=== PATIENT | female | born 1950 | race Caucasian/White ===

== ENCOUNTER 2019-08-03 12:11 | Day surgery (SDC) | payer OTHER, MEDICARE ==
[~2019-08-03 12:11] MED LIST: PIPERACILLIN/TAZOBACTAM 3.375 GM VIAL IVPB ONE
[2019-08-03 12:23] VITALS: BMI 30.2
--- NOTE | 2019-08-03 12:34 | PDOC ---
History of Present Illness - General Chief Complaint: Pain Stated Complaint: PCP SENT/ ABDOMINAL PAIN Time Seen by Provider: 08/03/19 12:31 History Source: Patient Exam Limitations: No Limitations - History of Present Illness Initial Comments: 08/03/19 12:31 HPI: 69yo F presenting from [facility] urgent care with abdominal pain for 2 days. Patient complains of gradual onset 8-10/10, L and deshawn-umbilical abdominal pain worsening over the past two days, normal bowel habits, no urinary symptoms, nausea / vomiting / ?reflux / churning pain. Patient endorses anorexia over the same time with inability to tolerate even water by mouth due to nausea / immediate emesis. Experienced chills and subjective fevers yesterday, none today. Feels her abdomen is distended. Also endorsing "gas pains" and pain that radiated up midline and is relieved with belching, previous globus sensation that has resolved. No prior pains similar to this. All: NKDA Meds: ASA 81mg PMH: Vertigo, Atherosclerosis PSH: Cholecystectomy, Past History - Travel Traveled outside of the country in the last 30 days: No Close contact w/someone who was outside of country & ill: No - Past Medical History Allergies/Adverse Reactions: Allergies Allergy/AdvReac Type Severity Reaction Status Date / Time No Known Allergies Allergy Verified 08/03/19 12:21 Home Medications: Ambulatory Orders NK [No Known Home Medication] 08/03/19 COPD: No - Surgical History Cholecystectomy: Yes - Suicide/Smoking/Psychosocial Hx Smoking Status: No Smoking History: Never smoked Have you smoked in the past 12 months: No Number of Cigarettes Smoked Daily: 0 Information on smoking cessation initiated: No Hx Alcohol Use: No Drug/Substance Use Hx: No Substance Use Type: None Hx Substance Use Treatment: No Review of Systems - Review of Systems Able to Perform ROS?: Yes Is the patient limited Lao proficient: Yes Constitutional: Yes: Chills, Fever. No: Diaphoresis, Weakness, Weight Stable HEENTM: No: Recent change in vision, Nose Congestion, Throat Pain, Throat Swelling, Mouth Pain Respiratory: No: Cough, Shortness of Breath, Wheezing Cardiac (ROS): Yes: Chest Pain (pains from abdomen radiate up through her chest and feel better with a burp). No: Irregular Heart Rate, Palpitations, Syncope, Chest Tightness ABD/GI: Yes: Abdominal Distended, Nausea, Poor Appetite, Poor Fluid Intake, Vomiting (small volume, water won't stay down), Indigestion. No: Blood Streaked Bowels, Constipated, Diarrhea, Rectal Bleeding, Abdominal cramping, Tarry Stools : No: Burning, Dysuria, Frequency, Flank Pain, Hematuria Musculoskeletal: No: Back Pain, Joint Pain, Muscle Weakness, Neck Pain Integumentary: No: Bruising, Pruritus, Rash, Sweating Neurological: No: Headache, Numbness, Tingling, Weakness Psychiatric: No: Emotional Problems, Change in Appetite Endocrine: No: Excessive Sweating, Flushing, Change in Weight Hematologic/Lymphatic: No: Anemia, Blood Clots, Easy Bleeding, Easy Bruising All Other Systems: Reviewed and Negative *Physical Exam - Vital Signs Last Vital Signs Temp Pulse Resp BP Pulse Ox 99.1 F 73 16 98/55 L 100 08/03/19 12:19 08/03/19 12:19 08/03/19 12:19 08/03/19 12:19 08/03/19 12:19 - Physical Exam Comments: 08/03/19 14:44 Vitals reviewed, AFVSS Gen: WDWN, stoic, NAD during interview, appears stated age HEENT: NCAT, MMM, EOMI, trachea midline, normal morphologies CV: RRR, normal s1/s2, no murmurs appreciated Pulm: CTABL, normal WOB, no wheezes / rales / rhonchi Abd: Soft with guarding, diffusely tender to palpation, non-peritoneal, scar in epigastrium and near umbilicus c/w surgical history, no rashes or other overlying markings Ext: WWP, no clubbing / cyanosis / edema Neuro: alert and oriented, MAEE, CN grossly intact ED Treatment Course - LABORATORY CBC & Chemistry Diagram: 08/03/19 12:49 08/03/19 12:49 Medical Decision Making - Medical Decision Making 08/03/19 13:50 69yo F presenting from urgent care with abdominal pain for 2 days. Patient complains of gradual onset 8-10/10, L and deshawn-umbilical abdominal pain worsening over the past two days, normal bowel habits, no urinary symptoms, nausea / vomiting / ?reflux / churning pain. Exam concerning for diffuse abdominal pain with guarding, non-peritoneal. Concerning for r/o perforated viscous, diverticulitis, appendicitis, colitis, ruptured PUD, or some other acute intra-abdominal process. -CBC, CMP, Lipase, Lactate, CP, UA/UCx -EKG -CTAP with contrast 08/03/19 14:11 -PT with leukocytosis to 19.0 -Urine with bacteria, blood, orange color, c/f UTI -Pt given zosyn for abx coverage -1L IVF bolus 08/03/19 16:22 -CTAP with acute appendicitis, pending official read -Patient and family updated, NPO since 11/14 water this AM, last aspirin yesterday AM -Maintenance fluids started -Consult call placed to [facility] 08/03/19 16:46 -Spoke with Dr. Mcghee, admit satellite -Additional fluids ordered, NPO -Patient in gown only 08/03/19 17:14 -Spoke with Dr. Mcghee who noticed a GI ?mass on CTAP -Pt with last colonoscopy 12-13 years ago -Official CT read acute appy without perforation or abscess *DC/Admit/Observation/Transfer Diagnosis at time of Disposition: Appendicitis Qualifiers: Appendicitis type: acute appendicitis Acute appendicitis type: with generalized peritonitis Appendicitis gangrene presence: unspecified whether gangrene present Appendicitis perforation presence: unspecified whether perforation present Appendicitis abscess presence: unspecified whether abscess present Qualified Code(s): K35.20 - Acute appendicitis with generalized peritonitis, without abscess - Discharge Dispostion Condition at time of disposition: Guarded Decision to Admit order: Yes - Referrals Referrals: Nba Silverio MD [Primary Care Provider] - - Patient Instructions - Post Discharge Activity
[2019-08-03] MEDS ORDERED: morphine CARPU-JECT 2 MG/1 ML DISP.SYRIN IVPUSH ONE (13:02)
[2019-08-03 13:08] LABS: BASO % 0.3 % (0-2.0); HEMATOCRIT 38.5 % (32.4-45.2); HEMOGLOBIN 12.5 GM/dL (10.7-15.3); LYMPH % 7.6 % (8-40); MCH 25.9 pg (25.7-33.7); MCHC 32.5 g/dl (32.0-36.0); MEAN CELL VOLUME 79.5 fl (80-96); MEAN PLT VOLUME 8.3 fl (7.5-11.1); MONO % 3.3 % (3.8-10.2); NEUT % 88.8 % (42.8-82.8); PLATELET COUNT 208 K/MM3 (134-434); RBC 4.85 M/mm3 (3.60-5.2); RDW 14.3 % (11.6-15.6)
[2019-08-03 13:14] LABS: INR 1.24 (0.83-1.09); PROTHROMBIN TIME (PATIENT) 14.7 SEC (9.7-13.0)
[2019-08-03 13:16] LABS: VENOUS PC02 32.5 mmHg (38-52); VENOUS PH 7.48 (7.31-7.41); VENOUS PO2 71.8 mmHg (28-48)
[2019-08-03] MEDS ORDERED: MORPHINE SULFATE 2 MG/ML VIAL ONE (13:23)
[2019-08-03 13:33] LABS: ALBUMIN 3.6 g/dl (3.4-5.0); ALK PHOS 91 U/L (45-117); ANION GAP 9 MMOL/L (8-16); BILIRUBIN,TOTAL 1.1 mg/dL (0.2-1); BLOOD UREA NITROGEN 12.7 mg/dL (7-18); CALCIUM 8.7 mg/dL (8.5-10.1); CHLORIDE 102 mmol/L (98-107); CO2 25 mmol/L (21-32); CREATININE 0.9 mg/dL (0.55-1.3); GLUCOSE,RANDOM 126 mg/dL (74-106); POTASSIUM 3.3 mmol/L (3.5-5.1); SGOT/AST 19 U/L (15-37); SGPT/ALT 23 U/L (13-61); SODIUM 136 mmol/L (136-145); TOT PROT 6.7 g/dl (6.4-8.2)
--- NOTE | 2019-08-03 13:35 | PDOC ---
Attending Attestation - Resident Resident Name: Lamberto Nuneziel - ED Attending Attestation I have performed the following: I have examined & evaluated the patient, The case was reviewed & discussed with the resident, I agree w/resident's findings & plan, Exceptions are as noted - HPI HPI: 08/03/19 13:32 Ms. Galvez is 69 yo F who presents to the ER from Urgent care due to abdominal pain Her symptoms began 2 nights ago after eating corn She notes severe lower abdominal pain She has been unable to tolerate po since this pain began she reports that her pain is 10/10, sharp, worse with any palpation of her abdomen, or movement She had a fever yesterday No prior episodes like this No known history of Diverticulitis Prior surgical history includes - Lap hugh And "surgery to not have babies" - Physicial Exam PE: 08/03/19 13:34 GENERAL: The patient is in no acute distress. ENT: Ears normal, nares patent, oropharynx clear without exudates. Moist mucous membranes. NECK: Normal range of motion, supple, no nuchal rigidity LUNGS: Breath sounds equal, clear to auscultation bilaterally. No wheezes, and no crackles. HEART:Regular rate and rhythm, normal S1 and S2 without murmur, rub or gallop. ABDOMEN: Soft, diffuse lower abdominal tenderness, voluntary guarding, no rebound EXTREMITIES: Normal range of motion, no edema. NEUROLOGICAL: Cranial nerves II through XII grossly intact. Normal speech. No focal neurological deficits. SKIN: Warm, Dry, normal turgor, no rashes or lesions noted. - Medical Decision Making 08/03/19 13:29 EKG: NSR rate of 86 bpm, axis nml, intervals nml, t waves inverted v2-v5 08/03/19 13:37 DD: appendicitis, diverticulitis, colitis, ruptured viscous will do Labs CT IVF Morphine 08/03/19 13:48 Laboratory Tests 08/03/19 08/03/19 08/03/19 12:44 12:49 12:49 WBC 19.0 H Hgb 12.5 Hct 38.5 Plt Count 208 Neutrophils % 88.8 H D INR Sodium 136 Potassium 3.3 L Chloride 102 Carbon Dioxide 25 BUN 12.7 Creatinine 0.9 Random Glucose 126 H Urine Blood 2+ H Urine Nitrite Negative Ur Leukocyte Esterase 2+ H Urine WBC (Auto) 228 08/03/19 12:49 WBC Hgb Hct Plt Count Neutrophils % INR 1.24 H Sodium Potassium Chloride Carbon Dioxide BUN Creatinine Random Glucose Urine Blood Urine Nitrite Ur Leukocyte Esterase Urine WBC (Auto) CT pending 08/03/19 16:19 CT = Acute Appendicitis Call placed to surgery Zosn ordered
[2019-08-03 13:37] LABS: EPI CELLS 14.1 /HPF (0-5/HPF); HYALINE CASTS 28 /lpf (0-8); PH,URINE 5.5 (5.0-8.0); URINE APPEARANCE TURBID; URINE BACTERIA 661.1 /hpf (NEGATIVE); URINE BILIRUBIN 1+ (NEGATIVE); URINE COLOR ORANGE; URINE GLUCOSE (UA) NEGATIVE (NEGATIVE); URINE KETONE TRACE (NEGATIVE); URINE LEUK ESTERASE 2+ (NEGATIVE); URINE NITRITE NEGATIVE (NEGATIVE); URINE PROTEIN 1+ (NEGATIVE); URINE WBC 228 /hpf (0-5)
[2019-08-03 13:54] LABS: URINE RBC 7.3 /hpf (0-4)
[2019-08-03 14:00] LABS: LIPASE 130 U/L (73-393)
[2019-08-03] MEDS ORDERED: PIPERACILLIN/TAZOB 3.375 GM 3.375 GM in DEXTROSE 5%-WATER - 50 ML IVPB ONE (14:09)
[2019-08-03] MEDS ORDERED: PIPERACILLIN/TAZOB 3.375 GM 3.375 GM/50 ML BAG IVPB ONE (14:21)
[2019-08-03] MEDS ORDERED: SODIUM CHLORIDE 0.9% 500 ML INFUS.BAG IV ONE (16:24)
[2019-08-03] MEDS ORDERED: SODIUM CHLORIDE 1,000 ML IV SCH (16:30)
[2019-08-03] MEDS ORDERED: LACTATED RINGERS SOLUTION 1,000 ML/1,000 ML INFUS.BAG IV STA (16:36)
[2019-08-03] MEDS ORDERED: KCL 10 MEQ IVPB 10 MEQ/100 ML INFUS.BAG IVPB SCH (16:45)
[2019-08-03] MEDS ORDERED: LACTATED RINGERS SOLUTION 1,000 ML/1,000 ML INFUS.BAG IV SCH (16:45)
[2019-08-03] MEDS ORDERED: KCL 10 MEQ IVPB 10 MEQ/100 ML INFUS.BAG IVPB ONE ×2 (16:54→17:54)
[2019-08-03] MEDS: KCL 10 MEQ IVPB 10 MEQ/100 ML INFUS.BAG IVPB SCH ×2 (17:05→17:59)
--- NOTE | 2019-08-03 18:31 | HP ---
Admitting History and Physical - Primary Care Physician PCP: Nba Silverio - Admission Chief Complaint: abdominal pain, anorexia, N/V, chills History of Present Illness: 69yo [place] F with vertigo, on baby ASA daily (last taken Mon), s/p lap hugh, R breast biopsy (benign) and lap tubal ligation, presents with generalized abdominal pain beginning night, associated with anorexia. That night she had several formed BMs and could not sleep well. Monday, she also developed nausea and vomiting, even when she tried to drink water, and then had chills as well. She got very little sleep last night, and the pain continued, so she came to ER. WBC 19, K 3.3, UA shows some translocation; CT shows enlarged/inflamed appendix with no evidence of perforation or abscess. She has gotten IV fluids and Zosyn, pain medicine, and is feeling a little better. The pain comes and goes. Denies urinary symptoms; nausea is better. She reports her last colonoscopy over [address] Cabrera follows her for a finding in her left breast with q6m mammograms. She is seen and examined in ER holding, with sister, daughter and son present. History Source: Patient Limitations to Obtaining History: No Limitations - Past Medical History MERCHANDISER: Yes: Vertigo Gastrointestinal: Yes: GERD (no meds) Reproductive: Yes: Postmenopausal, Other (R breast biopsy done (benign); abnormality in left breast being followed with mammos q6 months) - Past Surgical History Past Surgical History: Yes: Breast Biopsy (right), Cholecystectomy, Tubal Ligation - Smoking History Smoking history: Never smoked Have you smoked in the past 12 months: No - Alcohol/Substance Use Hx Alcohol Use: Yes (rarely) History of Substance Use: reports: None - Social History ADL: Independent Home Medications - Allergies Allergies/Adverse Reactions: Allergies Allergy/AdvReac Type Severity Reaction Status Date / Time No Known Allergies Allergy Verified 08/03/19 12:21 - Home Medications Home Medications: Ambulatory Orders Aspirin [Aspirin EC] 81 mg PO DAILY 08/03/19 Family Medical History Family Hx Diabetes: Sister, Brother Review of Systems - Review of Systems Constitutional: reports: Chills, Loss of Appetite. denies: Fever Eyes: denies: Blurred Vision, Recent Change in Vision HENT: denies: Difficult Swallowing, Throat Pain Neck: denies: Swollen Glands, Tenderness Cardiovascular: denies: Chest Pain, Palpitations Respiratory: denies: Cough, SOB Gastrointestinal: reports: Abdominal Pain, Bloating, Indigestion, Nausea, Vomiting. denies: Constipation, Diarrhea Genitourinary: denies: Burning, Dysuria Musculoskeletal: denies: Back Pain, Joint Pain, Muscle Pain Integumentary: denies: Change in Color, Rash Neurological: reports: Other (vertigo when lying down - no sig issues for about 6mos). denies: Dizziness, Headache Physical Examination Vital Signs: Vital Signs Temperature 99.2 F 08/03/19 18:03 Pulse Rate 75 08/03/19 18:03 Respiratory Rate 16 08/03/19 18:03 Blood Pressure 110/60 08/03/19 18:03 O2 Sat by Pulse Oximetry (%) 99 08/03/19 18:03 Constitutional: Yes: Well Nourished, No Distress, Calm Eyes: Yes: Conjunctiva Clear, EOM Intact HENT: Yes: Atraumatic, Normocephalic Neck: Yes: Supple, Trachea Midline Cardiovascular: Yes: Regular Rate and Rhythm Respiratory: Yes: Regular, CTA Bilaterally Gastrointestinal: Yes: Soft, Abdomen, Obese, Hyperactive Bowel Sounds, Tenderness (diffuse but less RUQ, most in RLQ and suprapubic; no rebound), Other (well-healed supra and infraumbilical scars (laparoscopic)). No: Distention ...Rectal Exam: Yes: Deferred Renal/: No: CVA Tenderness - Left, CVA Tenderness - Right Musculoskeletal: No: Back Pain, Joint Swelling Extremities: No: Cool, Cyanosis Edema: No Peripheral Pulses WNL: Yes Integumentary: No: Jaundice, Rash Neurological: Yes: Alert, Oriented Psychiatric: Yes: Alert, Oriented Labs: CBC, BMP 08/03/19 12:49 08/03/19 12:49 CMP Sodium 136 mmol/L (136-145) 08/03/19 12:49 Potassium 3.3 mmol/L (3.5-5.1) L 08/03/19 12:49 Chloride 102 mmol/L (98-107) 08/03/19 12:49 Carbon Dioxide 25 mmol/L (21-32) 08/03/19 12:49 Anion Gap 9 MMOL/L (8-16) 08/03/19 12:49 BUN 12.7 mg/dL (7-18) 08/03/19 12:49 Creatinine 0.9 mg/dL (0.55-1.3) 08/03/19 12:49 Est GFR (CKD-EPI)AfAm 76.14 08/03/19 12:49 Est GFR (CKD-EPI)NonAf 65.70 08/03/19 12:49 Random Glucose 126 mg/dL (74-106) H 08/03/19 12:49 Lactic Acid 1.4 mmol/L (0.4-2.0) 08/03/19 17:11 Calcium 8.7 mg/dL (8.5-10.1) 08/03/19 12:49 Total Bilirubin 1.1 mg/dL (0.2-1) H 08/03/19 12:49 AST 19 U/L (15-37) 08/03/19 12:49 ALT 23 U/L (13-61) 08/03/19 12:49 Alkaline Phosphatase 91 U/L (45-117) 08/03/19 12:49 Creatine Kinase 72 U/L (26-192) 08/03/19 12:49 Troponin I < 0.02 ng/ml (0.00-0.05) 08/03/19 12:49 Total Protein 6.7 g/dl (6.4-8.2) 08/03/19 12:49 Albumin 3.6 g/dl (3.4-5.0) 08/03/19 12:49 Lipase 130 U/L (73-393) 08/03/19 12:49 INR, PTT INR 1.24 (0.83-1.09) H 08/03/19 12:49 Urine Test Results Urine Color [place] 08/03/19 12:44 Urine Appearance Turbid 08/03/19 12:44 Urine pH 5.5 (5.0-8.0) 08/03/19 12:44 Ur Specific [place] 1.022 (1.010-1.035) 08/03/19 12:44 Urine Protein 1+ (NEGATIVE) H 08/03/19 12:44 Urine Glucose (UA) Negative (NEGATIVE) 08/03/19 12:44 Urine Ketones Trace (NEGATIVE) H 08/03/19 12:44 Urine Blood 2+ (NEGATIVE) H 08/03/19 12:44 Urine Nitrite Negative (NEGATIVE) 08/03/19 12:44 Urine Bilirubin 1+ (NEGATIVE) H 08/03/19 12:44 Ur Leukocyte Esterase 2+ (NEGATIVE) H 08/03/19 12:44 K+ being repleted Imaging - Results Cat Scan: Report Reviewed, Image Reviewed (reviewed - enlarged, inflamed appendix, no apparent abscess or perforation) Problem List - Problems (1) Acute appendicitis with generalized peritonitis, without gangrene or abscess Assessment/Plan: admit to surgery 23H/satellite NPO until postop IV fluids, repleting K+ pain meds prn, nonnarcotics first line periop antibiotics, got Zosyn already GI/DVT prophylaxis hold home ASA Discussed with patient risks, benefits and alternatives of laparoscopic possible open appendectomy, including but not limited to bleeding, infection, injury to adjacent structures, intestinal leak or injury, intraabdominal abscess , incisional hernia, need for further procedures, ; alternatives include antibiotics, delayed or no surgery - risks of this include failure of nonoperative therapy, perforation, sepsis, recurrence, . Patient desires to proceed with operation - will take to OR for above. Informed consent signed for same. Pt also understands that she will need to f/u with PMD in 1-2 weeks and GI in 6- 8 weeks for colonoscopy. Code(s): K35.20 - ACUTE APPENDICITIS WITH GEN PERITONITIS, WITHOUT ABSCESS Qualifiers: Appendicitis perforation presence: unspecified whether perforation present Qualified Code(s): K35.20 - Acute appendicitis with generalized peritonitis, without abscess (2) Generalized abdominal pain Code(s): R10.84 - GENERALIZED ABDOMINAL PAIN (3) Nausea and vomiting Code(s): R11.2 - NAUSEA WITH VOMITING, UNSPECIFIED Qualifiers: Vomiting type: unspecified Vomiting Intractability: non-intractable Qualified Code(s): R11.2 - Nausea with vomiting, unspecified (4) Anorexia Code(s): R63.0 - ANOREXIA
[2019-08-03] MEDS ORDERED: ONDANSETRON 4 MG/2 ML VIAL IVPUSH PRN ×2 (19:16→23:48)
[2019-08-03] MEDS ORDERED: BUPIVACAINE HCL/PF 0.5% (5 MG/ML) 30 ML VIAL IJ ONE (21:02)
[2019-08-03] MEDS ORDERED: fentaNYL CITRATE 250 MCG/5 ML VIAL ONE (21:28)
[2019-08-03] MEDS ORDERED: SUCCINYLCHOLINE CHLORIDE 200 MG/10 ML SYRINGE ONE (21:29)
[2019-08-03] MEDS ORDERED: MIDAZOLAM HCL 2 MG/2 ML SINGLE DOSE VIAL ONE (21:29)
[2019-08-03] MEDS ORDERED: PROPOFOL 20 ML ONE ×2 (21:29)
[2019-08-03] MEDS ORDERED: EPHEDRINE SULFATE/0.9% NACL/PF 50 MG/10 ML SYRINGE NR ONE (21:41)
[2019-08-03] MEDS ORDERED: PIPERACILLIN/TAZOBACTAM 3.375 GM VIAL IVPB ONE (22:03)
[2019-08-03] MEDS ORDERED: NEOSTIGMINE METHYLSULFATE 0.5 MG/ML - 10 ML MDV ONE (22:12)
[2019-08-03] MEDS ORDERED: ACETAMINOPHEN INJECTION 100 ML IVPB ONE (22:24)
[2019-08-03] MEDS ORDERED: BENZOIN TINCTURE SWABSTICK TP ONE (23:16)
[2019-08-03] MEDS ORDERED: LACTATED RINGERS SOLUTION 1,000 ML IV SCH (23:45)
--- NOTE | 2019-08-03 23:55 | OP ---
Operative Note - Note: Operative Date: 08/03/19 Pre-Operative Diagnosis: acute appendicitis Operation: laparoscopic appendectomy Findings: enlarged, inflamed appendix with necrotic spot near base and some peel adjacent , no abscess/esther pus; yellow cloudy fluid in pelvis, suctioned Post-Operative Diagnosis: Same as Pre-op Surgeon: Denis Mcghee Anesthesiologist/RELAY ADJUSTER: Jeanette Brannon Anesthesia: General, Local (10ml 0.5% marcaine) Specimens Removed: appendix to pathology Estimated Blood Loss (mls): 10 Drains & Tubes with Location: Barry out at end Drains, Volume Out (mls): 250 (UOP) Fluid Volume Replaced (mls): 1,500 (crystalloid) Operative Report Dictated: Yes
[2019-08-04] MEDS ORDERED: ONDANSETRON 4 MG/2 ML VIAL IVPUSH PRN (00:07)
[2019-08-04] MEDS: LACTATED RINGERS SOLUTION 1,000 ML/1,000 ML INFUS.BAG IV SCH ×2 (00:35→03:28)
[2019-08-04] MEDS ORDERED: ACETAMINOPHEN 325 MG TABLET (FP) PO SCH ×2 (06:00)
--- NOTE | 2019-08-04 08:50 | PN ---
Progress Note (short form) - Note Progress Note: Anesthesia/Pain Pt seen and examined S:Alert and awake comfortable O: Vital Signs Temperature 97.8 F 08/04/19 06:31 Pulse Rate 71 08/04/19 06:31 Respiratory Rate 18 08/04/19 06:31 Blood Pressure 106/61 08/04/19 06:31 O2 Sat by Pulse Oximetry (%) 96 08/04/19 06:31 CBC, BMP 08/03/19 12:49 08/03/19 12:49 A/P: Current Active Problems Acute appendicitis with generalized peritonitis, without gangrene or abscess ( Acute) Anorexia (Acute) Appendicitis (Acute) Generalized abdominal pain (Acute) Nausea and vomiting (Acute) s/p Appedectomy Doing well post op Continue current care Marvin Baez MD
[2019-08-04] MEDS ORDERED: IBUPROFEN 600 MG TABLET (FP) PO SCH ×2 (09:00)
[2019-08-04 14:17] VITALS: BP 109/55; PULSE 68; TEMP 98.3
--- NOTE | 2019-08-04 15:01 | DS ---
Physical Examination Vital Signs: Vital Signs Temperature 98.3 F 08/04/19 14:15 Pulse Rate 68 08/04/19 14:15 Respiratory Rate 20 08/04/19 14:15 Blood Pressure 109/55 L 08/04/19 14:15 O2 Sat by Pulse Oximetry (%) 98 08/04/19 09:00 Findings/Remarks: Pt seen up in chair eating lunch, examined after in bed. Feeling much better, c/ o pain at umbilicus, managed well with tylenol/ibuprofen, and gassiness/ bloating. Passed gas, no BM yet. No n/v, tolerating diet, eating lightly. Ambulated, voided. Family present. Constitutional: Yes: Well Nourished, No Distress, Calm Eyes: Yes: Conjunctiva Clear, EOM Intact HENT: Yes: Atraumatic, Normocephalic Cardiovascular: Yes: Regular Rate and Rhythm Respiratory: Yes: Regular, CTA Bilaterally Gastrointestinal: Yes: Normal Bowel Sounds, Soft, Distention, Tenderness (less RLQ, minimal RUQ, + incisional, more umbilical than other 2 sites) Musculoskeletal: No: Joint Stiffness, Joint Swelling Extremities: No: Cool, Cyanosis Integumentary: Yes: Incision (x3 dressed). No: Jaundice, Rash Wound/Incision: Yes: Steri Strips (under dressings), Dressing Dry and Intact (x3 ). No: Dressing Removed Neurological: Yes: Alert, Oriented Labs: no new labs Discharge Summary Reason For Visit: APPENDICITIS Current Active Problems Acute appendicitis with generalized peritonitis, without gangrene or abscess ( Acute) Anorexia (Acute) Generalized abdominal pain (Acute) Nausea and vomiting (Acute) Vertigo Procedures: Principal: laparoscopic appendectomy Hospital Course: 69[facility] [place] [facility] with vertigo and occasional heartburn presented with 2 days of central/generalized abdominal pain, associated with anorexia, nausea and vomiting and chills. She was noted to have wbc 19 in ER, mild hypokalemia 3.3 repleted with 20mEq KCL prior to OR, and CT showed acute appendicitis with enlarged, inflamed appendix without abscess or perforation. She was taken for laparoscopic appendectomy with findings of very inflamed, enlarged appendix with possible necrotic spot near base, adjacent inflammatory peel but no pus or abscess; some cloudy yellow fluid was suctioned from the pelvis. She had Zosyn x 2 doses preop. Postoperatively, pain is controlled with alternating nonnarcotics po, she has ambulated and voided, and is tolerating regular diet. Incisional dressings are c/d/i, and tenderness is appropriate and much less. She is discharged home with lifting restrictions to f/u in 2 weeks with surgery , as well as with her PMD. She may resume her usual baby aspirin in 2 days ( Monday) at home. In 6-8 weeks after recovery, she will also need to see GI for screening colonoscopy, as her last was over 10 years ago. Time spent on discharge: 35 minutes Condition: Good - Instructions Diet, Activity, Other Instructions: Postoperative instructions: You had a laparoscopic appendectomy on 08/03/[address] Denis Mcghee of [facility]. Activity: Resume your usual activities gradually, but no heavy exertion or lifting more than 10-15 pounds for 1 month. Remove dressings 48 hours after surgery (sticky tapes underneath will fall off by themselves). You may shower daily starting then, just pat the incision areas dry. No bath or swimming until skin incisions have healed. Eat lightly at first, but advance to your usual diet as tolerated. Pain: For pain, you may use and alternate Tylenol (acetaminophen) 1-2 pills and/ or ibuprofen 200 mg (1-3 pills) every 6 hours each as needed; this means that you can take one OR the other at 3-hour intervals. Do not take more than 4000mg of acetaminophen in a day. Take medications as prescribed or indicated on the labeling. You may resume taking your BABY ASPIRIN DAILY on Monday08/06/19. Follow-up: Call Dr. Mcghee's office at [phone] to make your postop appointment (Monday in approximately 2 weeks after surgery). Clinic is held in the [facility] on the first floor of [facility]. Call the office if you have: * increasing pain not responsive to pain medication * fever of 101F or higher * vomiting * unusual or increasing bleeding or drainage from wounds * increasing redness or swelling at wound sites Also, see your primary medical doctor within 1-2 weeks. You will need to follow up with GI (Gastroenterology/Dr. Esteban) as well, in about 6-8 weeks after you are recovered from surgery, to schedule a screening colonoscopy. Referrals: Nba Silverio MD [Primary Care Provider] - eDnis Mcghee MD [Staff Physician] - Disposition: HOME - Home Medications Comprehensive Discharge Medication List: Ambulatory Orders Aspirin [Aspirin EC] 81 mg PO DAILY 08/03/19 Acetaminophen [Tylenol .Regular Strength -] 650 mg PO Q6H tablet 08/04/19 Ibuprofen [Motrin -] 600 mg PO Q6H tablet 08/04/19
--- NOTE | 2019-08-05 07:14 | EKG ---
Test Reason : Blood Pressure : / mmHG Vent. Rate : 086 BPM Atrial Rate : 086 BPM P-R Int : 148 ms QRS Dur : 088 ms QT Int : 370 ms P-R-T Axes : 022 090 023 degrees QTc Int : 442 ms NORMAL SINUS RHYTHM RIGHTWARD AXIS T WAVE ABNORMALITY, CONSIDER ANTERIOR ISCHEMIA ABNORMAL ECG WHEN COMPARED WITH ECG OF 21-AUG-2012 16:33, NONSPECIFIC T WAVE ABNORMALITY, WORSE IN INFERIOR LEADS INVERTED T WAVES HAVE REPLACED NONSPECIFIC T WAVE ABNORMALITY IN ANTERIOR LEADS Confirmed by ANGELA BAL MD ([id number]) on 08/05/2019 7:14:25 AM Referred By: Confirmed By:ANGELA BAL MD
--- NOTE | 2019-08-06 17:02 | PATH ---
Surgical Pathology Report Patient Name: LUCY KO [facility]. Rec. #: [id number] /Age/Gender: 1950 (Age: 69) / F Account: [id number] Location: AMBULATORY SURG Taken: 08/03/2019 Received: 08/05/2019 Reported: 08/06/2019 Physicians: Denis Mcghee M.D. Specimen(s) Received APPENDIX Clinical History Acute appendicitis Final Diagnosis APPENDIX, LAPAROSCOPIC APPENDECTOMY: ACUTE APPENDICITIS AND PERIAPPENDICITIS. ACUTE SEROSITIS. Electronically Signed Zelda Barlow M.D. Gross Description Received in formalin, labeled "appendix," is a 5.5 x 2.5 x 2 cm. in length, partially disrupted appendix with a stapled margin of resection and moderate attached fat. The serosa shows yellow exudate. Sectioning reveals partially hemorrhagic lumen. The wall of the appendix averages 0.2 cm. in thickness. Signal Operator sections are submitted in one cassette. FATOUMATA/08/05/2019 sonja/08/05/2019
--- NOTE | 2019-08-12 20:41 | OP ---
DATE OF OPERATION: 08/03/2019 PREOPERATIVE DIAGNOSIS: Acute appendicitis. POSTOPERATIVE DIAGNOSIS: Acute appendicitis. PROCEDURE: Laparoscopic appendectomy. SURGEON: Denis Mcghee MD ANESTHESIA: General endotracheal and local, 10 mL of 0.5% Marcaine. ESTIMATED BLOOD LOSS: 10 mL. FLUIDS: Crystalloid 1500 mL. URINE OUTPUT: 250 mL (Barry out at end of case). SPECIMEN: Appendix to pathology. FINDINGS: Enlarged, inflamed appendix with necrotic spot near base and some adjacent peel. No esther abscess or pus. Small amount of yellow cloudy fluid in pelvis, suctioned. DISPOSITION: Stable and extubated to PACU. INDICATIONS FOR PROCEDURE: Patient is a 69-year-old [place] with a history of vertigo and reflux, whose only medication at home is a baby aspirin daily which was last taken 3 days prior, who presented with generalized abdominal pain associated with anorexia for 2 days. The first night, she had several formed bowel movements, but could not sleep well. The second day, she had nausea and vomiting, including vomiting of water when she tried to drink, as well as chills. So then, she came to the emergency room after getting very little sleep. White count in the ER was 19. CT showed an enlarged, inflamed appendix with no evidence of abscess. Exam was consistent with right lower quadrant tenderness and acute appendicitis. She was given IV fluids, started on Zosyn and some pain medication. Risks, benefits, and alternatives of laparoscopic, possible open appendectomy were discussed with the patient. These included, but were not limited to, bleeding, infection, injury to adjacent structures, intestinal leak or injury, intraabdominal abscess, incisional hernia, need for further procedures, and . Alternatives included antibiotics with delayed or no surgery. The risks of that included failure of nonoperative therapy, perforation, sepsis, recurrence, and . The patient was agreeable to proceed with an operation, signed informed consent for the same, and is now brought to the OR for this procedure. OPERATIVE TECHNIQUE: The patient was brought to the operating room and laid supine on the operating table. Sequential compression devices were applied to bilateral lower extremities, and appropriate antibiotics continued in the perioperative period. After induction and intubation by Anesthesia, a Barry catheter was placed into the patient's bladder, which was removed at the end of the case. Her abdomen was then prepped and draped in sterile fashion. A small infraumbilical midline incision was made with a scalpel and carried into subcutaneous tissues with electrocautery, until the abdominal wall fascia was identified, scored, and elevated with Toni clamps. The peritoneum was entered bluntly with the tip of the clamp, and a fingertip inserted to ensure entry into the abdominal cavity and the absence of any underlying adhesions. A stay suture of 0 Vicryl was placed in [id number] fashion in the fascia for later closure, and a Indu trocar introduced directly into the abdominal cavity, which was secured in place with the balloon. The abdomen was insufflated with carbon dioxide, and the patient was placed in Trendelenburg position. The laparoscope was inserted to inspect the abdominal cavity. There was some yellow cloudy fluid noted in the pelvis, which was later suctioned. Two additional 5-mm ports were placed under direct vision in the left lower quadrant and suprapubic areas. The camera was moved to the left lower quadrant port and the suction special inspector used to clear the pelvis of the cloudy fluid. Graspers were then introduced through the ports. The small bowel was gently manipulated medially away from the right lower quadrant. The patient was tipped with the right side planed slightly upward. An enlarged, inflamed appendix was then identified and followed back to the base near the cecum, where there was noted to be a small, possibly necrotic spot near to the base, with some adjacent yellow peel on the adjacent tissues. There was no esther pus. There was no abscess identified. The [place] dissector was then used to create a window at the base of the appendix where it joined the cecum through the mesoappendix. Because of the small spot that appeared necrotic, when the 45 purple load of the Endo ROHIT stapler was introduced, it was used to take not just the base of the appendix, but a very small sliver or cuff of cecum along with the specimen. This actually required 2 firings of a 45 purple load of the Endo ROHIT stapler. Once the base of the appendix with the sliver of cecum was free, some of the fatty adhesions of the mesoappendix to the terminal ileum and veil of Treves were bluntly , such that the inflamed appendix could be held up and the mesoappendix transected with 2 additional 45 white loads of the Endo ROHIT stapler. Once the appendix was completely freed, the operative site was also suctioned clear of fluid and blood, and the appendix was placed in an Endo Catch bag and drawn up into the Indu port. The field was re-inspected for hemostasis. The staple lines were noted to be not bleeding, and the suprapubic port was removed under direct vision. Then, the Indu port and the specimen in the bag were removed en bloc, and the appendix passed off for pathology. The camera and left lower quadrant port were also withdrawn, and the abdomen exsufflated of carbon dioxide. The patient was returned to neutral position, the stay suture at the umbilicus tied to close the fascia there, and the port sites infiltrated with local anesthetic. Hemostasis was also achieved in the port sites where needed with electrocautery. Skin was then closed with 4-0 Vicryl subcuticular sutures, including a running at the umbilicus. Benzoin and Steri-Strips were placed over each incision, and dressings of gauze and Tegaderm placed over these. Counts were correct at the end of the procedure. The Barry catheter was then removed from the patient's bladder. She was then awakened and extubated by Anesthesia, moved back to a stretcher, and taken to the recovery room in stable condition, having tolerated the procedure well. Naren [id number] MTDD
== END 2019-08-04 16:00 | disposition home or self-care (01) ==
LOC: JER 12:11 → JASUSAT 16:49 → J7W 08-04 00:57 → JASUSAT 08-04 16:00
PROVIDERS: ATTEND Surgery
PROC: 0DTJ4ZZ Resection of Appendix, Percutaneous Endoscopic Approach (ICD-10-PCS; principal; 2019-08-03 21:30)
DX: K35.80 Unspecified acute appendicitis (principal)
CPT/HCPCS: 36415; 74177-TC; 80053; 81003; 82550; 82803; 83605; 83690; 84484; 85025; 85610; 85730; 86850; 86900; 86901; 87040; 87086; 87186; 88304-TC; 93005; 93010; 94760; 99285-25; J0131

== ENCOUNTER → 2021-04-07 | Day surgery (SDC) | payer OTHER, MEDICARE | END | disposition home or self-care (01) | LOC: JRADUS-SUR 09:03 | PROVIDERS: ATTEND Surgery | PROC: 07B63ZX Excision of Left Axillary Lymphatic, Percutaneous Approach, Diagnostic (ICD-10-PCS; principal; 2021-04-07) | PROC: BH41ZZZ Ultrasonography of Left Breast (ICD-10-PCS; 2021-04-07) | DX: R59.0 Localized enlarged lymph nodes (principal) | CPT/HCPCS: 19083; 38505; 76942; 87899; 88305-TC; A4648 ==

== ENCOUNTER 2021-05-26 04:43 | Day surgery (SDC) | payer OTHER, MEDICARE ==
[2021-05-25 10:43] VITALS: BMI 27.6
[2021-05-26 10:44] VITALS: TEMP 97.8
[2021-05-26 11:05] VITALS: PULSE 65
[2021-05-26 15:16] VITALS: BP 126/67
== END 2021-05-26 12:05 | disposition home or self-care (01) ==
LOC: JASU-ENDO 04:43
PROVIDERS: ATTEND Internal Medicine Gastroenterology
PROC: 0DBH8ZX Excision of Cecum, Via Natural or Artificial Opening Endoscopic, Diagnostic (ICD-10-PCS; 2021-05-26)
PROC: 0DBM8ZX Excision of Descending Colon, Via Natural or Artificial Opening Endoscopic, Diagnostic (ICD-10-PCS; 2021-05-26)
PROC: 3E0H8GC Introduction of Other Therapeutic Substance into Lower GI, Via Natural or Artificial Opening Endoscopic (ICD-10-PCS; principal; 2021-05-26 10:00)
DX: Z12.11 Encounter for screening for malignant neoplasm of colon (principal); D12.4 Benign neoplasm of descending colon; D12.0 Benign neoplasm of cecum; K92.1 Melena

== ENCOUNTER 2021-08-04 09:00 | Inpatient (IN) | payer OTHER, MEDICARE ==
[2021-08-17 12:49] VITALS: BMI 27.4
[2021-08-18] MEDS ORDERED: ALVIMOPAN 12 MG CAP PO ONE (06:30)
[2021-08-18] MEDS ORDERED: ERTAPENEM SODIUM 1 GM VIAL ONE (06:41)
[2021-08-18] MEDS ORDERED: ERTAPENEM SODIUM 1 GM in SODIUM CHLORIDE 50 ML IVPB ONE (07:00)
[2021-08-18] MEDS ORDERED: BUPIVACAINE HCL/PF 0.5% (5MG/ML) 10 ML VIAL ONE (07:38)
[2021-08-18] MEDS ORDERED: BUPIVACAINE LIPOSOME/PF (EXPAREL) 266 MG/20 ML VIAL ONE (07:38)
[2021-08-18] MEDS ORDERED: MIDAZOLAM HCL 2 MG/2 ML SINGLE DOSE VIAL ONE ×3 (07:40→08:03)
[2021-08-18] MEDS ORDERED: PROPOFOL 20 ML ONE ×6 (07:42)
[2021-08-18] MEDS ORDERED: LIDOCAINE HCL 2% 100 MG/5 ML DISP.SYRIN ONE (07:43)
[2021-08-18] MEDS ORDERED: KETAMINE HCL 200 MG/20 ML VIAL ONE (07:43)
[2021-08-18] MEDS ORDERED: LIDOCAINE HCL/PF 2% SDV 5ML VIAL ONE (07:45)
[2021-08-18] MEDS ORDERED: MAGNESIUM SULF 50% (8.12 MEQ/2 ML-1 GM VIAL) ONE (07:45)
[2021-08-18] MEDS ORDERED: ROCURONIUM BROMIDE 50 MG/5 ML SYRINGE ONE (07:52)
[2021-08-18] MEDS ORDERED: ePHEDrine SULFATE 50 MG/1 ML AMPULE ONE (07:57)
[2021-08-18] MEDS ORDERED: DEXAMETHASONE SOD PHOSPHATE 4 MG/1 ML VIAL ONE ×2 (08:04)
[2021-08-18] MEDS ORDERED: GLYCOPYRROLATE 0.2 MG/1 ML VIAL ONE ×2 (08:05→08:06)
[2021-08-18] MEDS ORDERED: NEOSTIGMINE METHYLSULFATE 0.5 MG/ML - 10 ML MDV ONE (08:05)
[2021-08-18] MEDS ORDERED: SUCCINYLCHOLINE CHLORIDE 200 MG/10 ML SYRINGE ONE (08:08)
[2021-08-18] MEDS ORDERED: ERTAPENEM SODIUM 1 GM VIAL IVPB ONE (08:58)
[2021-08-18] MEDS ORDERED: DESFLURANE GAS 240 ML BOTTLE IH ONE (09:47)
[2021-08-18] MEDS ORDERED: INDOCYANINE GREEN 25 MG/10 ML VIAL IVPUSH ONE (09:50)
[2021-08-18] MEDS ORDERED: ONDANSETRON 4 MG/2 ML VIAL IVPUSH PRN (12:19)
[2021-08-18] MEDS ORDERED: HYDROmorphone *PCA* 10MG/50ML DISP.SYRIN PCA SCH (12:30)
[2021-08-18] MEDS ORDERED: HYDROmorphone *PCA* 10MG/50ML DISP.SYRIN ONE (12:54)
[2021-08-18] MEDS ORDERED: ACETAMINOPHEN INJECTION 100 ML IVPB ONE (12:54)
[2021-08-18] MEDS: ACETAMINOPHEN 1000 MG/100 ML VIAL (NON FORMULARY) IVPB SCH ×2 (13:00→18:20)
[2021-08-18] MEDS: LACTATED RINGERS SOLUTION 1,000 ML/1,000 ML INFUS.BAG IV SCH (15:21)
[2021-08-18] MEDS: CEFAZOLIN 2 GM in DEXTROSE 5%-WATER - 100 ML IVPB SCH (18:55)
[2021-08-18] MEDS ORDERED: PT OWN MED DRAWER 7, Y5N ONE (23:49)
[2021-08-19] MEDS: ACETAMINOPHEN 1000 MG/100 ML VIAL (NON FORMULARY) IVPB SCH ×3 (00:33→13:10)
[2021-08-19] MEDS: CEFAZOLIN 2 GM in DEXTROSE 5%-WATER - 100 ML IVPB SCH (03:10)
[2021-08-19 08:01] LABS: BASO % 0.1 % (0-2.0); HEMATOCRIT 35.4 % (32.4-45.2); HEMOGLOBIN 11.6 GM/dL (10.7-15.3); LYMPH % 12.6 % (8-40); MCH 26.2 pg (25.7-33.7); MCHC 32.7 g/dl (32.0-36.0); MEAN CELL VOLUME 80.1 fl (80-96); MEAN PLT VOLUME 8.5 fl (7.5-11.1); NEUT % 82.3 % (42.8-82.8); PLATELET COUNT 189 10^3/uL (134-434); RBC 4.42 M/mm3 (3.60-5.2); RDW 14.1 % (11.6-15.6); WHITE BLOOD COUNT 12.6 K/mm3 (4.0-10.0)
[2021-08-19 08:11] LABS: ALBUMIN 3.2 g/dl (3.4-5.0)
[2021-08-19 08:12] LABS: BLOOD UREA NITROGEN 8.9 mg/dL (7-18); MAGNESIUM 2.3 mg/dL (1.8-2.4)
[2021-08-19 08:14] LABS: CALCIUM 8.3 mg/dL (8.5-10.1)
[2021-08-19 08:15] LABS: CREATININE 0.6 mg/dL (0.55-1.3); PHOSPHOROUS 3.5 mg/dL (2.5-4.9)
[2021-08-19 08:16] LABS: BILIRUBIN,TOTAL 0.6 mg/dL (0.2-1); TOT PROT 6.3 g/dl (6.4-8.2)
[2021-08-19] MEDS ORDERED: morphine SULFATE 4 MG/ML VIAL IVPUSH PRN (08:52)
[2021-08-19] MEDS ORDERED: ACETAMINOPHEN 1000 MG/100 ML VIAL (NON FORMULARY) IVPB SCH (09:00)
[2021-08-19] MEDS: ENOXAPARIN NA (PORCINE) 40 MG/0.4 ML DISP.SYRIN SQ SCH (09:17)
[2021-08-19] MEDS ORDERED: KETOROLAC TROMETHAMINE 15 MG/ML VIAL IVPUSH PRN (21:26)
[2021-08-20] MEDS: LACTATED RINGERS SOLUTION 1,000 ML/1,000 ML INFUS.BAG IV SCH (06:11)
[2021-08-20 07:03] LABS: BASO % 0.4 % (0-2.0); HEMATOCRIT 35.1 % (32.4-45.2); HEMOGLOBIN 11.6 GM/dL (10.7-15.3); LYMPH % 23.5 % (8-40); MCH 26.2 pg (25.7-33.7); MCHC 32.9 g/dl (32.0-36.0); MEAN CELL VOLUME 79.6 fl (80-96); MEAN PLT VOLUME 8.3 fl (7.5-11.1); MONO % 5.3 % (3.8-10.2); NEUT % 70.8 % (42.8-82.8); PLATELET COUNT 191 10^3/uL (134-434); RBC 4.41 M/mm3 (3.60-5.2); RDW 14.1 % (11.6-15.6); WHITE BLOOD COUNT 11.3 K/mm3 (4.0-10.0)
[2021-08-20 07:35] LABS: ALBUMIN 3.2 g/dl (3.4-5.0)
[2021-08-20 07:36] LABS: BLOOD UREA NITROGEN 8.8 mg/dL (7-18); CALCIUM 8.3 mg/dL (8.5-10.1); MAGNESIUM 2.3 mg/dL (1.8-2.4)
[2021-08-20 07:39] LABS: CREATININE 0.6 mg/dL (0.55-1.3); PHOSPHOROUS 1.6 mg/dL (2.5-4.9)
[2021-08-20 07:40] LABS: TOT PROT 6.4 g/dl (6.4-8.2)
[2021-08-20] MEDS ORDERED: POTASSIUM PHOSPHATE 30 MM in SODIUM CHLORIDE 500 ML IVPB ONE (09:00)
[2021-08-20] MEDS: ENOXAPARIN NA (PORCINE) 40 MG/0.4 ML DISP.SYRIN SQ SCH (09:14)
[2021-08-20 17:46] LABS: HEMATOCRIT 33.7 % (32.4-45.2); HEMOGLOBIN 11.1 GM/dL (10.7-15.3); MCHC 32.8 g/dl (32.0-36.0); MEAN CELL VOLUME 79.3 fl (80-96); MEAN PLT VOLUME 8.3 fl (7.5-11.1); PLATELET COUNT 179 10^3/uL (134-434); RBC 4.25 M/mm3 (3.60-5.2); RDW 14.2 % (11.6-15.6); WHITE BLOOD COUNT 9.9 K/mm3 (4.0-10.0)
[2021-08-21] MEDS: ACETAMINOPHEN WITH CODEINE 300MG/30MG TABLET PO PRN ×2 (05:36→17:13)
[2021-08-21] MEDS: ENOXAPARIN NA (PORCINE) 40 MG/0.4 ML DISP.SYRIN SQ SCH (09:02)
[2021-08-21 10:38] LABS: HEMATOCRIT 34.7 % (32.4-45.2); HEMOGLOBIN 11.3 GM/dL (10.7-15.3); MCH 25.9 pg (25.7-33.7); MCHC 32.6 g/dl (32.0-36.0); MEAN CELL VOLUME 79.6 fl (80-96); MEAN PLT VOLUME 8.7 fl (7.5-11.1); PLATELET COUNT 208 10^3/uL (134-434); RBC 4.36 M/mm3 (3.60-5.2); RDW 14.3 % (11.6-15.6); WHITE BLOOD COUNT 11.2 K/mm3 (4.0-10.0)
[2021-08-21 10:57] LABS: CALCIUM 8.2 mg/dL (8.5-10.1)
[2021-08-21 10:58] LABS: ALBUMIN 3.2 g/dl (3.4-5.0); BLOOD UREA NITROGEN 15.6 mg/dL (7-18)
[2021-08-21 10:59] LABS: BILIRUBIN,TOTAL 0.7 mg/dL (0.2-1)
[2021-08-21 11:00] LABS: TOT PROT 6.5 g/dl (6.4-8.2)
[2021-08-21 11:01] LABS: CREATININE 0.6 mg/dL (0.55-1.3); PHOSPHOROUS 3.2 mg/dL (2.5-4.9)
[2021-08-21 14:26] VITALS: BP 124/64; PULSE 71; TEMP 98.6
== END 2021-08-21 18:12 | disposition home or self-care (01) | DRG 331 ==
LOC: J2C 08-18 04:30 → J8W 08-18 14:54
PROVIDERS: ADMIT Surgery; ATTEND Surgery
PROC: 8E0W4CZ Robotic Assisted Procedure of Trunk Region, Percutaneous Endoscopic Approach (ICD-10-PCS; 2021-08-18)
PROC: 0DTF4ZZ Resection of Right Large Intestine, Percutaneous Endoscopic Approach (ICD-10-PCS; principal; 2021-08-18 08:00)
DX: C18.0 Malignant neoplasm of cecum (principal)
CPT/HCPCS: 36415; 80053; 83735; 84100; 85025; 85027; 88307-TC; 93971-TC; 94760; C9803; J0131; U0003; U0005

== ENCOUNTER 2021-12-20 11:03 | Emergency (ER) | payer OTHER, MEDICARE ==
[2021-12-20 11:17] VITALS: BMI 26.2
[2021-12-20] MEDS ORDERED: SODIUM CHLORIDE 500 ML IV STA (12:00)
[2021-12-20] MEDS ORDERED: morphine CARPU-JECT 4 MG/1 ML DISP.SYRIN IVPUSH ONE (12:00)
[2021-12-20] MEDS ORDERED: ONDANSETRON 4 MG/2 ML VIAL IVPUSH ONE (12:00)
[2021-12-20] MEDS ORDERED: morphine SULFATE 4 MG/ML VIAL ONE (12:09)
[2021-12-20] MEDS ORDERED: ONDANSETRON 4 MG/2 ML VIAL ONE (12:09)
[2021-12-20 13:25] LABS: CALCIUM 8.8 mg/dL (8.5-10.1)
[2021-12-20 13:26] LABS: ALBUMIN 3.8 g/dl (3.4-5.0); BLOOD UREA NITROGEN 12.2 mg/dL (7-18)
[2021-12-20 13:29] LABS: CREATININE 0.7 mg/dL (0.55-1.3)
[2021-12-20 13:31] LABS: BILIRUBIN,TOTAL 0.7 mg/dL (0.2-1)
[2021-12-20 13:51] LABS: EPI CELLS 21 /uL (0-25.1); HYALINE CASTS 1 /uL (0-3.1); URINE APPEARANCE CLEAR; URINE BACTERIA 41 /uL (0-1359); URINE BILIRUBIN NEGATIVE (NEGATIVE); URINE COLOR YELLOW; URINE GLUCOSE (UA) NEGATIVE (NEGATIVE); URINE KETONE NEGATIVE (NEGATIVE); URINE LEUK ESTERASE 2+ (NEGATIVE); URINE NITRITE NEGATIVE (NEGATIVE); URINE PROTEIN NEGATIVE (NEGATIVE); URINE RBC 5 /uL (0-23.9); URINE UROBILINOGEN 0.2 mg/dL (0.2-1.0); URINE WBC 108 /uL (0-25.8)
[2021-12-20 16:15] LABS: BASO % 0.4 % (0-2.0); EOS % 0.3 % (0-4.5); HEMATOCRIT 33.1 % (32.4-45.2); HEMOGLOBIN 10.8 GM/dL (10.7-15.3); LYMPH % 16.8 % (8-40); MCHC 32.5 g/dl (32.0-36.0); MEAN PLT VOLUME 8.3 fl (7.5-11.1); MONO % 5.8 % (3.8-10.2); NEUT % 76.7 % (42.8-82.8); PLATELET COUNT 193 10^3/uL (134-434); RDW 15.3 % (11.6-15.6); WHITE BLOOD COUNT 10.5 K/mm3 (4.0-10.0)
[2021-12-20] MEDS ORDERED: KETOROLAC TROMETHAMINE 15 MG/ML VIAL IVPUSH ONE (16:57)
[2021-12-20] MEDS ORDERED: KETOROLAC TROMETHAMINE 15 MG/ML VIAL ONE (17:01)
[2021-12-20 17:10] VITALS: BP 132/62; PULSE 74; TEMP 97.6
== END 2021-12-20 17:11 | disposition home or self-care (01) ==
LOC: JER 11:03
PROC: 3E0333Z Introduction of Anti-inflammatory into Peripheral Vein, Percutaneous Approach (ICD-10-PCS; principal; 2021-12-20)
PROC: 3E033NZ Introduction of Analgesics, Hypnotics, Sedatives into Peripheral Vein, Percutaneous Approach (ICD-10-PCS; 2021-12-20)
PROC: 3E033GC Introduction of Other Therapeutic Substance into Peripheral Vein, Percutaneous Approach (ICD-10-PCS; 2021-12-20)
PROC: 3E0337Z Introduction of Electrolytic and Water Balance Substance into Peripheral Vein, Percutaneous Approach (ICD-10-PCS; 2021-12-20)
DX: N30.90 Cystitis, unspecified without hematuria (principal)
CPT/HCPCS: 36415; 74177-TC; 80053; 81003; 83690; 85025; 93005; 93010; 99285-25; C9803; Q9967; U0003; U0005

== ENCOUNTER 2023-06-02 05:15 | Day surgery (SDC) | payer OTHER, MEDICARE ==
[2023-05-31 10:40] VITALS: BMI 27.4
[2023-06-02 09:52] VITALS: BP 121/50; PULSE 62; RESP 16; TEMP 97.6
== END 2023-06-02 10:14 | disposition home or self-care (01) ==
LOC: JASU-ENDO 05:15
PROVIDERS: ATTEND Internal Medicine Gastroenterology
PROC: 0DBE8ZX Excision of Large Intestine, Via Natural or Artificial Opening Endoscopic, Diagnostic (ICD-10-PCS; principal; 2023-06-02 09:00)
DX: Z12.11 Encounter for screening for malignant neoplasm of colon (principal); K64.8 Other hemorrhoids; K57.30 Diverticulosis of large intestine without perforation or abscess without bleeding; Z98.0 Intestinal bypass and anastomosis status; Z85.038 Personal history of other malignant neoplasm of large intestine
CPT/HCPCS: 88305-TC

== ENCOUNTER 2024-02-26 11:37 | Emergency (ER) | payer OTHER, MEDICARE ==
[2024-02-26 11:47] VITALS: RESP 18; BMI 26.0
[2024-02-26] MEDS ORDERED: FAMOTIDINE 20 MG/50 ML IVPB 20 MG/50 ML MG IVPB ONE (13:11)
[2024-02-26] MEDS ORDERED: ONDANSETRON 4 MG/2 ML VIAL ONE (13:11)
[2024-02-26] MEDS ORDERED: ACETAMINOPHEN INJECTION 100 ML IVPB ONE (13:11)
[2024-02-26] MEDS: ONDANSETRON 4 MG/2 ML VIAL IVPUSH ONE (13:25)
[2024-02-26] MEDS: SODIUM CHLORIDE 0.9% 500 ML INFUS.BAG IV ONE (13:31)
[2024-02-26] MEDS: ACETAMINOPHEN 1000 MG/100 ML BAG IVPB ONE (13:31)
[2024-02-26 13:39] LABS: HEMATOCRIT 41.5 % (32.4-45.2); HEMOGLOBIN 13.3 GM/dL (10.7-15.3); MCH 25.6 pg (25.7-33.7); MCHC 32.1 g/dl (32.0-36.0); MEAN CELL VOLUME 79.7 fl (80-96); MEAN PLT VOLUME 8.2 fl (7.5-11.1); PLATELET COUNT 192 10^3/uL (134-434); RBC 5.21 M/mm3 (3.60-5.2); RDW 14.5 % (11.6-15.6); WHITE BLOOD COUNT 10.5 K/mm3 (4.0-10.0)
[2024-02-26 13:46] LABS: INR 1.03 (0.83-1.09); PROTHROMBIN TIME (PATIENT) 11.9 SEC (9.7-13.0)
[2024-02-26 13:48] LABS: ACTIVATED PTT 29.9 SECONDS (25.2-36.5)
[2024-02-26 14:04] LABS: POTASSIUM 3.7 mmol/L (3.5-5.1)
[2024-02-26 14:07] LABS: BLOOD UREA NITROGEN 14.5 mg/dL (7-18)
[2024-02-26 14:10] LABS: CREATININE 0.7 mg/dL (0.55-1.3)
[2024-02-26 14:11] LABS: BILIRUBIN,TOTAL 0.9 mg/dL (0.2-1); TOT PROT 7.2 g/dl (6.4-8.2)
[2024-02-26] MEDS: FAMOTIDINE 20 MG/50 ML IVPB 20 MG/50 ML MG IVPB ONE (14:24)
[2024-02-26 14:35] LABS: EPI CELLS >36 /uL (0-25.1); HYALINE CASTS 1 /uL (0-3.1); PH,URINE 5.5 (5.0-8.0); URINE APPEARANCE CLEAR; URINE BACTERIA 33 /uL (0-1359); URINE BILIRUBIN NEGATIVE (NEGATIVE); URINE COLOR YELLOW; URINE GLUCOSE (UA) NEGATIVE (NEGATIVE); URINE KETONE TRACE (NEGATIVE); URINE LEUK ESTERASE NEGATIVE (NEGATIVE); URINE NITRITE NEGATIVE (NEGATIVE); URINE PROTEIN NEGATIVE (NEGATIVE); URINE RBC 18 /uL (0-23.9); URINE UROBILINOGEN 0.2 mg/dL (0.2-1.0)
[2024-02-26 17:10] VITALS: BP 110/56; PULSE 83; TEMP 98.8
== END 2024-02-26 18:03 | disposition home or self-care (01) ==
LOC: JER 11:37
PROC: 3E033GC Introduction of Other Therapeutic Substance into Peripheral Vein, Percutaneous Approach (ICD-10-PCS; principal; 2024-02-26)
PROC: 3E030GC Introduction of Other Therapeutic Substance into Peripheral Vein, Open Approach (ICD-10-PCS; 2024-02-26)
PROC: 3E030GC Introduction of Other Therapeutic Substance into Peripheral Vein, Open Approach (ICD-10-PCS; 2024-02-26)
DX: R11.2 Nausea with vomiting, unspecified (principal); R19.7 Diarrhea, unspecified; R10.13 Epigastric pain; Z20.822 Contact with and (suspected) exposure to COVID-19
CPT/HCPCS: 0241U-QW; 36415; 74177-TC; 80053; 81003; 83605; 83690; 84484; 85025; 85610; 85730; 86850; 86900; 86901; 87086; 93005; 93010; 99285-25; J0131; Q9967

== ENCOUNTER 2024-08-23 04:10 | Day surgery (SDC) | payer OTHER, MEDICARE ==
[2024-08-14 10:14] VITALS: BMI 21.8
[2024-08-23 07:57] VITALS: TEMP 98.1
[2024-08-23 09:42] VITALS: BP 131/64; PULSE 20; RESP 58
== END 2024-08-23 10:00 | disposition home or self-care (01) ==
LOC: JASU-ENDO 04:10
PROVIDERS: ATTEND Internal Medicine Gastroenterology
PROC: 0DB98ZX Excision of Duodenum, Via Natural or Artificial Opening Endoscopic, Diagnostic (ICD-10-PCS; 2024-08-23)
PROC: 0DB78ZX Excision of Stomach, Pylorus, Via Natural or Artificial Opening Endoscopic, Diagnostic (ICD-10-PCS; 2024-08-23)
PROC: 0DB68ZX Excision of Stomach, Via Natural or Artificial Opening Endoscopic, Diagnostic (ICD-10-PCS; 2024-08-23)
PROC: 0DBL8ZX Excision of Transverse Colon, Via Natural or Artificial Opening Endoscopic, Diagnostic (ICD-10-PCS; principal; 2024-08-23 09:00)
DX: Z12.11 Encounter for screening for malignant neoplasm of colon (principal); K57.30 Diverticulosis of large intestine without perforation or abscess without bleeding; K64.8 Other hemorrhoids; K21.00 Gastro-esophageal reflux disease with esophagitis, without bleeding; K29.50 Unspecified chronic gastritis without bleeding; K29.40 Chronic atrophic gastritis without bleeding; Z85.038 Personal history of other malignant neoplasm of large intestine; Z98.0 Intestinal bypass and anastomosis status
CPT/HCPCS: 88305-TC; 88342-TC